=== PATIENT | female | born 1970 | race Hispanic/Latino ===

== ENCOUNTER → 2017-05-30 | Outpatient (CLI) | payer OTHER ==
--- NOTE | 2017-06-09 18:10 | Diagnostic Imaging Report ---
#[id number] - MGSCRNBI #BILATERAL DIGITAL SCREENING MAMMOGRAM WITH CAD: 05/30/2017 CLINICAL: Routine screening. No prior exams were available for comparison. Current study contains 5 films. The tissue of both breasts is heterogeneously dense. This may lower the sensitivity of mammography. Current study was also evaluated with a Computer Aided Detection (CAD) system. There is a 7 mm oval mass in the right breast at 11 o'clock middle depth. There is a 1 cm oval mass in the left breast at 11 o'clock middle depth. No other significant masses or calcifications are seen in either breast. IMPRESSION: INCOMPLETE: NEEDS ADDITIONAL IMAGING EVALUATION The 7 mm oval mass in the right breast at 11 o'clock middle depth resembles a lymph node but is indeterminate. Additional views with possible ultrasound are recommended. The 1 cm oval mass in the left breast at 11 o'clock middle depth is indeterminate. Additional views with possible ultrasound are recommended. The patient is known to have had prior mammograms at [facility] but are not available to compare with. If these become available then additional imaging may not be necessary. The patient will be contacted by the Mammography Department to schedule this appointment. Darren Collins Jr., D.O. cw/:06/08/2017 14:36:27 Aviation Manager: Porsha SHIPMAN)(M), [facility] letter sent: Additional Imaging Needed Mammogram BI-RADS: 0 Indeterminate
== END ==
LOC: MAMMO 09:55
PROVIDERS: ATTEND Internal Medicine
DX: Z12.31 Encounter for screening mammogram for malignant neoplasm of breast (principal)

== ENCOUNTER → 2017-07-05 | Outpatient (CLI) | payer OTHER ==
--- NOTE | 2017-07-06 09:06 | Diagnostic Imaging Report ---
#[id number] - USBRELIMLT ULTRASOUND OF THE LEFT BREAST : 07/05/2017 Comparison is made to exams dated: 07/05/2017 mammogram and 05/30/2017 mammogram - [facility]. Foscused color flow and real-time ultrasound were performed on the left breast with scanning from 9-12 o'clock. -At 11 o'clock 2 cm from the nipple is a benign appearing cyst measuring 9 x 5 x 7 mm. This corresponds to the mammographic finding. -At 12 o'clock 2 cm from the nipple is a small septated cyst vs cluster of cysts measuring a composite 6 x 3 x 3 mm. IMPRESSION: BENIGN There is no sonographic evidence of malignancy. A 1 year screening mammogram is recommended. Darren Collins Jr., D.O. cw/:07/05/2017 13:17:08 Assurance Engineer: ROSEY KUHN, [facility] letter sent: Normal Exam Ultrasound BI-RADS: 2 Benign
--- NOTE | 2017-07-06 09:06 | Diagnostic Imaging Report ---
#[id number] - MGDXLT #UNILATERAL LEFT DIGITAL DIAGNOSTIC MAMMOGRAM WITH SPOT COMPRESSION: 07/05/2017 Comparison is made to exam dated: 05/30/2017 mammogram - [facility]. Current study contains 3 films. The tissue of the left breast is heterogeneously dense. This may lower the sensitivity of mammography. Focal spot compression confirms a 1 cm mass in the left breast at 11 o'clock middle depth. No other significant masses or calcifications are seen in the breast. IMPRESSION: INCOMPLETE: NEEDS ADDITIONAL IMAGING EVALUATION The 1 cm mass in the left breast is indeterminate. An ultrasound is recommended and will be performed today. Darren Collins Jr., D.O. cw/:07/05/2017 12:00:16 Information Security Officer: Porsha STERN(Maninder)(M), [facility] letter sent: Additional Imaging Needed Mammogram BI-RADS: 0 Indeterminate
== END ==
LOC: MAMMO 07:50
PROVIDERS: ATTEND Internal Medicine
DX: N63.20 Unspecified lump in the left breast, unspecified quadrant (principal)

== ENCOUNTER → 2018-07-30 | Outpatient (CLI) | payer OTHER ==
--- NOTE | 2018-07-31 12:53 | Diagnostic Imaging Report ---
#[id number] - MGSCRBIL #BILATERAL DIGITAL SCREENING MAMMOGRAM WITH CAD: 07/30/2018 CLINICAL: Routine screening. Comparison is made to exams dated: 07/05/2017 mammogram and 05/30/2017 mammogram - [facility]. There are scattered fibroglandular elements in both breasts. Current study was also evaluated with a Computer Aided Detection (CAD) system. No significant masses, calcifications, or other findings are seen in either breast. There has been no significant interval change. IMPRESSION: NEGATIVE There is no mammographic evidence of malignancy. A 1 year screening mammogram is recommended. The patient will be notified by letter of the results. VIPIN NESS M.D., mc/franklin:07/31/2018 11:45:44 Postage Machine Operator: Porsha STERN(R)(M), [facility] letter sent: Normal Exam Mammogram BI-RADS: 1 Negative
== END ==
LOC: MAMMO 08:43
PROVIDERS: ATTEND Internal Medicine
DX: Z12.31 Encounter for screening mammogram for malignant neoplasm of breast (principal)
CPT/HCPCS: 77067

== ENCOUNTER → 2024-03-12 | Outpatient (REF) | payer OTHER | LOC: MAMMO 09:22 | PROVIDERS: ATTEND Internal Medicine | DX: Z12.31 Encounter for screening mammogram for malignant neoplasm of breast (principal); M85.88 Other specified disorders of bone density and structure, other site | CPT/HCPCS: 77067; 77080 ==